=== PATIENT | male | born 1965 | race Caucasian/White ===

== ENCOUNTER 2023-11-01 12:12 | Inpatient (IN) ==
[2023-11-01] MEDS: CYCLOBENZAPRINE HCL 10 MG TAB PO STA (13:08)
[2023-11-01] MEDS: KETOROLAC TROMETHAMINE 15 MG/ML VIAL IV STA (13:08)
--- NOTE | 2023-11-01 13:08 | Emergency Department Note ---
ED Provider Note History of Present Illness Chief Complaint: Back Injury/Pain Stated Complaint: BACK AND LEG PAIN Time Seen by Provider: 11/01/23 12:27 57-year-old male presents to the emergency department with complaints of lower back pain and right leg pain. Patient reports that he has been seeing a chiropractor, Dr. Hugo, several times over the last couple weeks to be adjusted. Dr. Hugo referred him to Dr. Campos with orthospine because he is continue to have severe pain. Patient reports that he was not able to get in to see Dr. Campos until at least tomorrow but reports that he was told if the pain was severe he should come to the emergency department for MRI. Patient notes that walking and putting any weight on his right leg has been nearly impossible and he is unable to straighten or left his leg without significant pain. Home Medications Medication Instructions Recorded Confirmed Type HCTZ/LISINOPRIL (Lisinopril/Hctz 0.5 tab PO DAILY #0 tabs 11/16/11 History 02/02.5 Mg) Allergies Allergy/AdvReac Type Severity Reaction Status Date / Time No Known Allergies Allergy Unverified 11/15/11 23:58 Past Med/Surg History Problem List (Updated 11/01/23 @ 16:37 by SALENA Goodrich) Protrusion of lumbar intervertebral disc (Acute) Social History Smoking Status: Current some day smoker Tobacco Type: Cigars Feels Safe at Home: Yes Physical Exam Vital Signs Vital Signs - 24 hr 11/01/23 12:23 11/01/23 12:56 11/01/23 14:31 Temperature 36.6 C Temperature Source Temporal Artery Scan Pulse Rate 97 H Pulse Rate [Right Finger] 80 77 Pulse Rhythm [Right Finger] Regular Pulse Strength [Right Finger] Normal Respiratory Rate 18 16 18 Respiratory Effort / Characteristics Non-Labored Spontaneous Non-Labored Spontaneous Respiratory Depth Normal Normal Respiratory Pattern Regular Blood Pressure 136/85 Blood Pressure [Right Arm] 132/81 132/84 Blood Pressure Mean 102 Blood Pressure Mean [Right Arm] 98 100 Blood Pressure Position [Right Arm] Sitting Pulse Oximetry 99 98 95 Oxygen Delivery Method Room Air Room Air Room Air Sepsis Recent Fever Within 48 Hours No Sepsis New/Unexplained Change in Mental Status No Sepsis Action Taken by Nursing No Action Required 11/01/23 16:00 Temperature Temperature Source Pulse Rate Pulse Rate [Right Finger] 69 Pulse Rhythm [Right Finger] Pulse Strength [Right Finger] Respiratory Rate 20 Respiratory Effort / Characteristics Non-Labored Respiratory Depth Normal Respiratory Pattern Blood Pressure Blood Pressure [Right Arm] Blood Pressure Mean Blood Pressure Mean [Right Arm] Blood Pressure Position [Right Arm] Pulse Oximetry 96 Oxygen Delivery Method Room Air Sepsis Recent Fever Within 48 Hours Sepsis New/Unexplained Change in Mental Status Sepsis Action Taken by Nursing VITAL SIGNS - Vital signs and nursing notes were reviewed. GENERAL -57-year-old male appearing his stated age and in noticeable discomfort throughout the exam. NECK - FROM of the cervical spine. ABDOMEN - Abdominal contour flat without pulsations or visible masses. BS normoactive all four quadrants. Patient denies any bowel or bladder incontinence. MUSCULOSKELETAL - ROM of the lumbar spine region was limited due to pain. Pt made slow and short movements when asked to change position. Tenderness to Palpation experienced at the level of the lumbar spine. Patient has noticeable weakness in his right leg as compared to his left. Patient has significant pain when trying to put weight on his right leg. Patient has difficulty straightening his right leg or doing a straight leg lift due to muscle weakness and pain. Hyporeflexia noted on the right side. SENSORY: Patient has difficulty discriminating between sharp versus dull sensation in his foot. Reports that he has had numbness and tingling in his right foot since this back pain started. EXTREMITIES - Range of Motion - No tremors, ticks, or fasciculations of the lower extremities noticed during inspection. Pt unable to perform straight leg raise on right side without difficulty. Pt had decreased strength appreciated on the right side against examiner's resistance. VASCULAR - Capillary refill of the great toe was brisk. No mottling or blanching of the extremities present. Dorsalis pedis pulses palpated bilaterally. Course Course The patient is a 57-year-old male who presents today complaining of lower back pain and right leg pain. The patient was evaluated as above. IV access was obtained. Imaging studies were performed and read by radiology as above. The patient was medicated with Toradol and Flexeril. The patient was reassessed multiple times during their stay in the emergency department and remained in stable condition. 14:30- The patient was reevaluated after returning from MRI and reported that he was still having significant pain. Patient reports that the muscle relaxer helped him to straighten out his leg but the Toradol and Flexeril did not help with the pain. Patient was ordered morphine for pain and Zofran for nausea while he awaits results from imaging studies. 15:25-patient was reevaluated and stated that he was still having significant pain even after the morphine. Patient was ordered a second dose of morphine to help with the significant pain that he was still having. Discussed with patient the possibility of admission to the hospital for pain control, patient voiced that he would prefer to be able to go home, but knows that he cannot go home without being functional. 15:55-patient was reevaluated after the second dose of morphine and states that he still having some pretty significant pain. IV doses of morphine are only bringing his pain down a very small amount. Patient is still having significant weakness in his right leg. Patient is concerned about being able to go home and ambulate without a lot of help from his for needing to crawl around. Patient informed that it would probably be best for him to be admitted to the hospital for pain control patient is agreeable to that plan. 16:30-[facility] hospitalist group was consulted for admission. Patient was accepted under Dr. Mclaughlin. [facility] hospitalist team requested that I reach out to Dr. Campos regarding this patient, as that was supposed to be the outpatient plan. I reached out to Dr. Campos at this time, he has seen the patient and is agreeable to admission and pain control. Administered Medications Discontinued Medications Cyclobenzaprine HCl (Cyclobenzaprine Hcl 10 Mg Tab) 10 mg PO NOW STA Stop: 11/01/23 12:44 Last Admin: 11/01/23 13:08 Dose: 10 mg Documented By: RENA Dexamethasone (Dexamethasone Sod Inj 4 Mg/Ml Vial) 10 mg IV NOW STA Stop: 11/01/23 15:26 Last Admin: 11/01/23 15:37 Dose: 10 mg Documented By: RAJNI Ketorolac Tromethamine (Ketorolac Tromethamine 15 Mg/Ml Vial) 15 mg IV NOW STA Stop: 11/01/23 12:46 Last Admin: 11/01/23 13:08 Dose: 15 mg Documented By: RENA Morphine Sulfate (Morphine Sulfate 4 Mg/Ml 1 Ml Carp\Vial) 4 mg IV NOW STA Stop: 11/01/23 14:27 Last Admin: 11/01/23 14:31 Dose: 4 mg Documented By: RENA Morphine Sulfate (Morphine Sulfate 4 Mg/Ml 1 Ml Carp\Vial) 4 mg IV NOW STA Stop: 11/01/23 15:15 Last Admin: 11/01/23 15:25 Dose: 4 mg Documented By: RAJNI Ondansetron HCl (Ondansetron Inj 2 Mg/Ml 2 Ml Vial) 4 mg IV NOW STA Stop: 11/01/23 14:27 Last Admin: 11/01/23 14:31 Dose: 4 mg Documented By: RENA Medical Decision Making Differential Diagnosis In the evaluation and treatment of this patient the following differential diagnoses were considered: Cauda equina syndrome, discitis, HNP, sciatica, epidural abscess, psoas abscess, musculoskeletal strain, lumbar fracture, lumbar dislocation, lumbar subluxation, spondylolisthesis, spondylosis, or compression fracture. Medical Records Attestation: I reviewed the patient's medical records. Home Medications was personally reviewed by me Laboratory Data 11/01/23 16:34 11/01/23 16:34 Imaging Data Radiologist's Impression: Lumbar Spine MRI 11/01/23 12:43 LUMBAR SPINE MRI HISTORY: Right leg pain. Back Pain TECHNIQUE: Multiplanar multisequence MRI of the lumbar spine was performed without the use of contrast. COMPARISON: Lumbar spine radiographs 11/01/2023. FINDINGS: For the purpose of the report the L5-S1 disc space will be located on axial image 27 of 30. Straightening of the lumbar spine. No fracture or subluxation. Moderate disc space narrowing at T11-T12. Disc desiccation at L4-L5 and L5-S1 without significant narrowing. The remaining disc spaces are preserved. The conus terminates at the L1-L2 disc space level. Paravertebral soft tissues are unremarkable. There is a partially visualized 2 cm T2 hyperintense lesion within the left kidney. This favors a cyst. L1-L2: No significant central canal or neural foraminal narrowing. L2-L3: There is a small focal central annular tear. No significant central canal or right-sided neural foraminal narrowing. There is mild left-sided neural foraminal narrowing. L3-L4: No significant central canal or neural foraminal narrowing. L4-L5: There is a right foraminal focal disc protrusion which measures 5 mm. This abuts and displaces the exiting right L4 nerve root and results in moderate to severe right-sided neural foraminal narrowing. This is best seen on sagittal image 5 and axial image 21. No significant central canal narrowing. There is also mild left-sided neural foraminal narrowing. L5-S1: Small focal central annular tear. No significant central canal or neural foraminal narrowing. IMPRESSION: 1. A 5 mm right foraminal focal disc protrusion at L4-5 which abuts and displaces the exiting right L4 nerve root and results in moderate to severe right-sided neural foraminal narrowing. 2. No fracture or subluxation within the lumbar spine. 3. No significant central canal narrowing. ACT 112: Negative or not required by law. Electronically signed by: Matthew Castañeda M.D. 11/01/2023 3:02 PM Lumbar Spine X-Ray 11/01/23 12:43 XR lumbar spine 2-3V HISTORY: 57 years-old Male back pain acute low back pain without reported trauma COMPARISON: MRI lumbar spine of same day TECHNIQUE: 3 views of lumbar spine FINDINGS: No acute fracture, subluxation, endplate erosion or marrow replacing process. The intervertebral disc spaces are generally well maintained within the lumbar spine. There is moderate intervertebral disc space narrowing at T11-T12. IMPRESSION: No acute fracture or subluxation. ACT 112: Negative or not required by law. The above report was generated using voice recognition software. It may contain grammatical, syntax or spelling errors. Electronically signed by: Adan Ravi M.D. 11/01/2023 3:33 PM [facility] Narrative Given the patient's presentation and exam findings, I did elect to perform the above-mentioned workup. The patient was monitored constantly throughout entire stay in the emergency setting. Patient was found to have foraminal disc protrusion and neural foraminal narrowing at L4-L5 on MRI. Patient was still in significant pain after attempts at pain control in the emergency department and ultimately admission to the hospital was deemed appropriate for pain control. [facility] Protrusion of lumbar intervertebral disc Discharge Plan Visit Data Chief Complaint: Back Injury/Pain Stated Complaint: BACK AND LEG PAIN ED Provider: Bhupinder Becerra ED Midlevel Provider: Leny Villagran Discharge Problem: Protrusion of lumbar intervertebral disc Patient Disposition: Admitted As Inpatient Forms Stand Alone Forms: My [facility] Prescriptions Prescriptions: No Action HCTZ/LISINOPRIL (Lisinopril/Hctz 10/12.5 Mg) 1 EA tablet 0.5 tab PO DAILY Qty: 0 Referrals Referrals: Bhupinder Monteiro [Outside Practitioners] -
[2023-11-01] MEDS: MoRPHine SULFATE 4 MG/ML 1 ML CARP\\VIAL IV STA ×2 (14:31→15:25)
[2023-11-01] MEDS: ONDANSETRON INJ 2 MG/ML 2 ML VIAL IV STA (14:31)
--- NOTE | 2023-11-01 15:04 | Magnetic Resonance Report ---
LUMBAR SPINE MRI HISTORY: Right leg pain. Back Pain TECHNIQUE: Multiplanar multisequence MRI of the lumbar spine was performed without the use of contras t. COMPARISON: Lumbar spine radiographs 11/01/2023. FINDINGS: For the purpose of the report the L5-S1 disc space will be located on axial image 27 of 30. Straightening of the lumbar spine. No fracture or subluxation. Moderate disc space narrowing at T11-T 12. Disc desiccation at L4-L5 and L5-S1 without significant narrowing. The remaining disc spaces are preserved. The conus terminates at the L1-L2 disc space level. Paravertebral soft tissues are unremar kable. There is a partially visualized 2 cm T2 hyperintense lesion within the left kidney. This favor s a cyst. L1-L2: No significant central canal or neural foraminal narrowing. L2-L3: There is a small focal central annular tear. No significant central canal or right-sided neura l foraminal narrowing. There is mild left-sided neural foraminal narrowing. L3-L4: No significant central canal or neural foraminal narrowing. L4-L5: There is a right foraminal focal disc protrusion which measures 5 mm. This abuts and displaces the exiting right L4 nerve root and results in moderate to severe right-sided neural foraminal narro wing. This is best seen on sagittal image 5 and axial image 21. No significant central canal narrowin g. There is also mild left-sided neural foraminal narrowing. L5-S1: Small focal central annular tear. No significant central canal or neural foraminal narrowing. IMPRESSION: 1. A 5 mm right foraminal focal disc protrusion at L4-5 which abuts and displaces the exiting right L 4 nerve root and results in moderate to severe right-sided neural foraminal narrowing. 2. No fracture or subluxation within the lumbar spine. 3. No significant central canal narrowing. ACT 112: Negative or not required by law. Electronically signed by: Matthew Castañeda M.D. 11/01/2023 3:02 PM
--- NOTE | 2023-11-01 15:34 | XRay Report ---
XR lumbar spine 2-3V HISTORY: 57 years-old Male back pain acute low back pain without reported trauma COMPARISON: MRI lumbar spine of same day TECHNIQUE: 3 views of lumbar spine FINDINGS: No acute fracture, subluxation, endplate erosion or marrow replacing process. The intervertebral disc spaces are generally well maintained within the lumbar spine. There is moderate intervertebral disc space narrowing at T11-T12. IMPRESSION: No acute fracture or subluxation. ACT 112: Negative or not required by law. The above report was generated using voice recognition software. It may contain grammatical, syntax o r spelling errors. Electronically signed by: Adan Ravi M.D. 11/01/2023 3:33 PM
[2023-11-01] MEDS: DEXAMETHASONE SOD INJ 4 MG/ML VIAL IV STA (15:37)
--- NOTE | 2023-11-01 16:27 | History & Physical Report ---
Date of Service November 01, 2023 Assessment & Plan (1) Lumbosacral radiculopathy: (2) Protrusion of lumbar intervertebral disc: Plan: Patient is 57 year old male with PMH HTN, GERD, prediabetes presented to [facility] c/o low back pain, right leg pain x 3 weeks. Patient reports Low back pain and right lateral leg pain x 3 weeks. ER afebrile, vital signs stable In ER given morphine, Toradol, Decadron, now rating pain 5 out 10 on pain scale Obtain admission labs, EKG Admit med surg for pain control Scheduled Tylenol, oxycodone and dilaudid prn pain Start gabapentin Start prednisone 20mg daily Ortho spine consult CBC, BMP in am (3) HTN (hypertension): Plan: Stable in ER Continue amlodipine, losartan (4) GERD (gastroesophageal reflux disease): Plan: Continue PPI (5) Prediabetes: Plan: A1c: 5.9 in 08/31/22 A1c in AM Monitor glucose on steroids DVT Prophylaxis SCDs Full Code as per discussion with pt Follows with Dr Bernadette Diego for routine care Pt was seen and care coordinated with Dr Lord. See addendum I spent a total of 75 minutes reviewing notes, outpatient records, labs, medication, coordinating, documenting and providing care for this patient excluding time spent in the performance of separately billed services. History of Present Illness Chief Complaint: back pain Primary Care Provider: Bernadette Diego, Patient is 57 year old male with PMH HTN, GERD, prediabetes presented to ER [facility] c/o low back pain, right leg pain x 3 weeks. Patient reports Low back pain and right lateral leg pain x 3 weeks. Seeing chiropractor past several weeks without improvement. Patient states past 4 days with increased right leg pain and right foot numbness. He states sneezed 4 days ago and wonders if pain increased after that but he is unsure. Denies any other known injury or trauma. Was referred to Dr Campos, ortho spine but hasn't seen yet. 10/18/23 Dr Campos prescribed Medrol dose pack which patient finished without much relief. He has also been alternating Tylenol and Motrin without much relief. Past couple of days having so much right leg pain that he hasn't been able to ambulate. He doesn't think right leg is weak just very painful with attempted walking. Rates pain 9 out of 10 on pain scale. Denies saddle paresthesias, loss of control of bowel or bl adder. Denies fever/chills, diaphoresis, N/V/D/C, FARRELL, dizziness, syncope, vision changes, neck pain, CP, SOB, palpitations, cough, sore throat, rhinorrhea, abdominal pain, extremity edema, rashes, dysuria, hematuria, urinary retension. Allergies Allergy/AdvReac Type Severity Reaction Status Date / Time No Known Allergies Allergy Unverified 11/15/11 23:58 Home Medications Medication Instructions Recorded Confirmed Type amlodipine 10 mg tablet 10 mg PO DAILY 11/01/23 11/01/23 History losartan 100 mg tablet 100 mg PO QAM 11/01/23 11/01/23 History omeprazole 20 mg capsule,delayed 20 mg PO DAILYBB 11/01/23 11/01/23 History release Past Med/Surg History Problem List (Updated 11/01/23 @ 17:45 by Azucena Zamora PA-C) Lumbosacral radiculopathy Prediabetes GERD (gastroesophageal reflux disease) HTN (hypertension) Protrusion of lumbar intervertebral disc (Acute) Surgical History History of colonoscopy Family History Father Hypertension Stroke Mother Hypertension Stroke Social History Smoking Status: Current some day smoker Tobacco Type: Cigars Hx Alcohol Use: Yes (6 drinks on weekends) Hx Substance Use: No Feels Safe at Home: Yes Review of Systems Review of Systems: All systems reviewed & are unremarkable except as noted in HPI & below Physical Exam Physical Exam: General: no acute distress currently, WDWN Head: normocephalic, atraumatic Eyes: conjunctiva non-injected, anicteric ENT: normal inspection external ears, nose, mucous membranes moist Neck: supple, trachea midline, non-tender Lungs: clear, no respiratory distress, no wheezing/rhonchi/rales CV: RRR, no murmur, no pretibial edema Abd: normal BS, soft, non-tender Back: no spinous process tenderness to palpation, +tenderness to right lower lumbar region, +tenderness to palpation right buttock and right lateral thigh. +right leg raise to approx 20 degrees. Sensation to light touch intact bilaterally, +dorsalis pedis pulse intact Ext: no cyanosis, no calf tenderness Neuro: A&O x 3, no focal deficits noted, normal affect Skin: warm, dry Results & Data Results & Data Vital Signs (Past 12 Hours) Vital Signs Temp Pulse Pulse Resp BP BP Pulse Ox 11/01/23 14:31 77 18 132/84 95 11/01/23 12:56 80 16 132/81 98 11/01/23 12:23 36.6 C 97 H 18 136/85 99 O2 Del Method 11/01/23 14:31 Room Air 11/01/23 12:56 Room Air 11/01/23 12:23 Room Air Laboratory Results Short CBC 11/01/23 Range/Units 16:34 WBC 10.22 (4.8-10.8) K/ul Hgb 14.0 (14.0-18.0) g/dl Hct 41.2 L (42.0-52.0) % Plt Count 232 (130-400) K/uL BMP 11/01/23 16:34 Sodium 140 Potassium 4.3 Chloride 106 Carbon Dioxide 26 BUN 16 Creatinine 0.74 Glucose 120 H Calcium 9.2 Liver Function 11/01/23 Range/Units 16:34 Total Bilirubin 0.8 (0.2-1.0) mg/dl AST 16 (13-39) U/L ALT 24 (7-52) U/L Alkaline Phosphatase 56 (34-104) U/L Albumin 4.1 (3.4-5.0) gm/dl Diagnostic Findings Lumbar Spine MRI 11/01/23 12:43 LUMBAR SPINE MRI HISTORY: Right leg pain. Back Pain TECHNIQUE: Multiplanar multisequence MRI of the lumbar spine was performed without the use of contrast. COMPARISON: Lumbar spine radiographs 11/01/2023. FINDINGS: For the purpose of the report the L5-S1 disc space will be located on axial image 27 of 30. Straightening of the lumbar spine. No fracture or subluxation. Moderate disc space narrowing at T11-T12. Disc desiccation at L4-L5 and L5-S1 without significant narrowing. The remaining disc spaces are preserved. The conus terminates at the L1-L2 disc space level. Paravertebral soft tissues are unremarkable. There is a partially visualized 2 cm T2 hyperintense lesion within the left kidney. This favors a cyst. L1-L2: No significant central canal or neural foraminal narrowing. L2-L3: There is a small focal central annular tear. No significant central canal or right-sided neural foraminal narrowing. There is mild left-sided neural foraminal narrowing. L3-L4: No significant central canal or neural foraminal narrowing. L4-L5: There is a right foraminal focal disc protrusion which measures 5 mm. This abuts and displaces the exiting right L4 nerve root and results in moderate to severe right-sided neural foraminal narrowing. This is best seen on sagittal image 5 and axial image 21. No significant central canal narrowing. There is also mild left-sided neural foraminal narrowing. L5-S1: Small focal central annular tear. No significant central canal or neural foraminal narrowing. IMPRESSION: 1. A 5 mm right foraminal focal disc protrusion at L4-5 which abuts and displaces the exiting right L4 nerve root and results in moderate to severe right-sided neural foraminal narrowing. 2. No fracture or subluxation within the lumbar spine. 3. No significant central canal narrowing. ACT 112: Negative or not required by law. Electronically signed by: Matthew Castañeda M.D. 11/01/2023 3:02 PM Lumbar Spine X-Ray 11/01/23 12:43 XR lumbar spine 2-3V HISTORY: 57 years-old Male back pain acute low back pain without reported trauma COMPARISON: MRI lumbar spine of same day TECHNIQUE: 3 views of lumbar spine FINDINGS: No acute fracture, subluxation, endplate erosion or marrow replacing process. The intervertebral disc spaces are generally well maintained within the lumbar spine. There is moderate intervertebral disc space narrowing at T11-T12. IMPRESSION: No acute fracture or subluxation. ACT 112: Negative or not required by law. The above report was generated using voice recognition software. It may contain grammatical, syntax or spelling errors. Electronically signed by: Adan Ravi M.D. 11/01/2023 3:33 PM Supervising Physician Co-Signing Physician Notes Attending Addendum: Case reviewed with the advanced practitioner. I have personally performed a history and physical examination on the patient. I have reviewed the advanced practitioner's documentation on the date of service referenced in note, and I agree with, and take responsibility for the plan of care. please refer to her notes for full details patient seen and examined, records reviewed by myself as well on exam, patient Seen sitting up in bed, comfortable, not in distress States back pain and right lower extremity pain has improved compared to admission, currently around 2 out of 10 Still has some R foot tingling/ numbness no other symptoms VS noted and reviewed oriented x 3 , not in distress, speaks in sentences with no effort nor accessory muscle use normal rate, regular rhythm, no murmurs clear breath sounds bilaterally non distended, soft, nontender no bipedal edema, erythema, warmth no gross neuro deficits all labs, imaging noted and reviewed ASSESSMENT AND PLAN Intractable low back pain, radiculopathy Disc protrusion at L4-L5, with L4 nerve root compression Given IV Decadron at the ER Continue with prednisone 20 g p.o. daily, gabapentin 3 times daily As needed oxycodone, IV Dilaudid Orthospine consulted other diagnoses and plan of care as per advanced practitioner's notes Giovanny Lord MD
[2023-11-01 17:04] LABS: Basophils # (auto) 0.06 K/uL (0.00-0.20); Basophils % (auto) 0.6 %; Eosinophils # (auto) 0.07 K/uL (0.00-0.50); Eosinophils % (auto) 0.7 %; Hematocrit (blood only) 41.2 % (42.0-52.0); Immature Granulocytes # (auto) 0.08 K/uL (0.01-0.20); Immature Granulocytes % (auto) 0.8 %; Lymphocytes # (auto) 2.29 K/uL (1.20-3.40); Lymphocytes % (auto) 22.4 %; Mean Corpuscular Hemoglobin 30.2 pg (25.0-34.0); Mean Platelet Volume 9.7 fL (9.4-12.4); Monocytes # (auto) 0.72 K/uL (0.11-0.59); Neutrophils % (auto) 68.5 %; Platelet Count 232 K/uL (130-400); RDW Coefficient of Variation 11.8 % (11.5-14.5); RDW Standard Deviation 37.4 fL (36.4-46.3); Red Blood Count 4.63 M/uL (4.70-6.10); White Blood Count 10.22 K/ul (4.8-10.8)
[2023-11-01 17:19] LABS: Alanine Aminotransferase 24 U/L (7-52); Albumin Globulin Ratio 1.3 (0.9-2); Albumin Level 4.1 gm/dl (3.4-5.0); Alkaline Phosphatase 56 U/L (34-104); Anion Gap 8 (3-11); Aspartate Aminotransferase 16 U/L (13-39); BUN Creatinine Ratio 21.6 (10-20); Bilirubin,Total 0.8 mg/dl (0.2-1.0); Blood Urea Nitrogen 16 mg/dl (6-23); Calcium 9.2 mg/dl (8.6-10.3); Carbon Dioxide 26 mmol/L (21-32); Chloride 106 mmol/L (98-107); Est GFR (African American) 119.5 ml/min; Est GFR (Non-African American) 103.1 ml/min; Globulin 3.2 gm/dl (2.5-4.0); Glucose 120 mg/dl (70-99(Fasting)); Potassium 4.3 mmol/L (3.5-5.1); Sodium 140 mmol/L (136-145); Total Protein 7.3 gm/dl (6.0-8.3)
[2023-11-01 17:28] LABS: INR 0.9 (0.9-1.1); Partial Thromboplastin Time 27 Seconds (21-31); Prothrombin Time 10.2 Seconds (9.0-12.0)
[2023-11-01] MEDS: amLODIPine BESYLATE 5 MG TAB PO ONE (17:31)
[2023-11-01] MEDS ORDERED: ONDANSETRON INJ 2 MG/ML 2 ML VIAL IV PRN (19:31)
[2023-11-01] MEDS: ACETAMINOPHEN 500 MG TAB PO SCH (21:34)
[2023-11-01] MEDS: GABAPENTIN 100 MG CAP PO SCH (21:34)
[2023-11-01] MEDS: HYDROmorphone INJ 0.5 MG/0.5 ML SYR IV PRN (21:39)
[2023-11-01] MEDS: oxyCODONE HCL IR 5 MG TAB (IMMEDIATE RELEASE) PO PRN (23:07)
--- OUTSIDE RECORDS SUMMARY | 2023-11-02 06:08 | External Medical Summary | Summary of Care ---
Author Name Unknown Organization [facility] Address [address] [place] [address] Phone [phone] Care Team Providers Care Vehicle Delivery Worker Name Role Phone Bernadette Diego DO Primary Care Provider [phone] Reason for Visit * Reason Onset Date Comments Advice 04/21/2023 Encounter Details Date Type Department Care Team (Late st Contact Info) Description 04/21/2023 Telephone Family Practice [facility] [address] [facility] [place] [address] Bernadette Diego DO [address] [facility] [address] Advice Allergies Active Allergy Reactions Criticality Noted Date Comments Hydrochlorothiazide 09/07/2020 Possibly caused itching documented as of this encounter (statuses as of 07/21/2023) Medications Medication Sig Dispensed Refills Start Date End Date Status hydrOXYzine HCl 25 MG Oral TabletIndications:It isamar TAKE 1 TABLET BY MOUTH EVERY 6 HOURS NEEDED FOR ITCHING. 90 Tablet 3 03/31/2022 Active Fish Oil 1000 MG Oral Capsule Take 1 Capsule by mouth in the morning. 0 Active Turmeric 500 MG Oral Capsule Take 1 Capsule by mouth in the morning. 0 Active Melatonin 10 MG Oral Tablet Take 1 Tablet by mouth at bedtime. 0 Active Omeprazole 20 MG Oral Capsule Delayed Release (PriLOSEC)Indication s:Gastroesophageal reflux disease with esophagitis, unspecified whether hemorrhage TAKE ONE CAPSULE BY MOUTH ONCE DAILY ONE HOUR BEFORE THE 1ST MEAL OF THE DAY 90 Capsule 3 10/27/2022 Active Clobetasol Propionate 0.05 % External Cream (Temovate)Indication s:Poison shaquille dermatitis Apply topically to affected area 2 times a day for up to one week. 30 g 1 11/09/2022 Active Losartan Potassium 100 MG Oral Tablet (Cozaar)Indications: HTN, goal below 130/80 TAKE ONE TABLET BY MOUTH IN THE MORNING 90 Tablet 3 02/20/2023 Active Benzonatate 100 MG Oral Capsule Take 1 Capsule by mouth 3 times a day as needed for Cough. 30 Capsule 1 04/19/2023 Active Ventolin HFA 108 (90 Base) MCG/ACT Inhalation Aerosol Solution Inhale 2 Puffs by mouth every 4 hours as needed for Wheezing. 18 g 1 04/19/2023 Active documented as of this encounter (statuses as of 07/21/2023) Active Problems Problem Noted Date Diagnosed Date Aortic root enlargement 10/02/2020 Overview: Mild 4.3 cm 09/2020, stable from previous echo 2017 Mild aortic regurgitation 10/02/2020 Prediabetes 09/01/2020 Overview: Per Prediabetes protocol HTN, goal below 130/80 GERD (gastroesophageal reflux disease) documented as of this encounter (statuses as of 07/21/2023) Resolved Problems Problem Noted Date Diagnosed Date Resolved Date Chest pain 07/23/2014 07/25/2017 Acute sinusitis 06/24/2014 07/23/2014 GERD (gastroesophageal reflux disease) 06/24/2014 07/23/2014 Malaise and fatigue 07/09/2013 07/24/19 15 Headache 07/09/2013 07/23/2014 Overview: ICD-10 update of inactive term General medical exam 07/09/2013 018 Pain of left lower leg 12/28/201107/09 Left leg injury 12/19/2011 07/09/2013 Itching 11/17/2011 07/23/2014 Sprain and strain of other s pecified sites of shoulder and upper arm 10/18/2010 07/23/2014 Elevated blood pressure, situational 10/15/2010 11/17/2011 documented as of this encounter (statuses as of 07/21/2023) Immunizations Name Administration Dates Next Due COVID-19 mRNA, LNP-s, No Pre serve, 2-Dose Series (Moderna) 09/03/2020,08/13/2020 TDAP (age 10 and older)(Boostrix) 09/11/2018 TDAP (age 11 and older)(Adacel) 06/22/2008 documented as of this encounter Social History Tobacco Use Types Packs/Day Years Used Date Smoking Tobacco: Some Days Cigarettes Cigars Smokeless Tobacco: Never Comments:only when drinking, 3-4 a week - cigars Alcohol Use Standard Drinks/Week Comments Yes 0 (1 standard drink = 0.6 oz pur e alcohol) social PHQ-2 Answer Date Recorded PHQ Adult Total Score 0 08/31/2022 Hunger Vital Sign Answer Date Recorded Within the past 12 months, y ou worried that your food would run out before you got the money to buy more. Never true 09/01/19 23 Within the past 12 months, t he food you bought just didn't last and you didn't have money to get more. Never true 08/31/2022 Sex and Gender Information Value Date Recorded Sex Assigned at Male 08/31/2022 2:04 PM EDT Gender Identity Male 08/31/2022 2:04 PM EDT Sexual Orientation Straight 08/31/2022 2: 04 PM EDT Job Start Date Occupation Industry Not on file Not on file Not on file documented as of this encounter Miscellaneous Notes * Telephone Encounter - iHlda Chaudhry MED ASSIST - 04/21/2023 2:40 PM EST MyG message sent. * Telephone Encounter - Brunilda Deleon CRNP - 04/21/2023 2:31 PM EST Cough is expected with flu and should gradually reduce. Can try over the counter Delsym. I sent in tessalon perldemlis as well. Mayela, MSN, [place] [facility] * Telephone Encounter - Chandni Peña OSA - 04/21/2023 9:15 AM EST Spouse seeking guidance, patient seen on 04/19 for cold symptoms - currently taking tamiflu. Still has issues sleeping through the night due to cough. Patient also taking albuterol and mucinex. Coughmore manageable during day, patient wants to know what further steps to take to help with sleep. Call back #[phone] documented in this encounter Plan of Treatment Scheduled Procedures Name Priority Associated Diagnoses Date/Ti me COLONOSCOPY FLEXIBLE PROXIMA L DIAGNOSTIC Recall Special screening for malignant neoplasms, colon Health Maintenance Due Date Last Done Comments Pneumococcal Vaccine: Pediatrics (0 to 5 Years) and At-Risk Patients (6 to 64 Years) (1 of 2 - PCV) 1972 Hepatitis C Screening 1984 Hepatitis B (1 of 3 - 19+ 3-dose series) 1985 Cologuard 11/28/2011 Fecal Occult Blood Test 11/28/2011 Sigmoidoscopy 11/28/2011 Zoster Vaccines (1 of 2) 2016 COVID-19 Vaccine (3 - season) 2022 09/03/2020, 08/13/2020 Influenza Vaccine (FLU shot) (#1) 2022 Depression Screening 09/01/2023 08/31/2022 GFR 09/01/2023 08/31/2022, 05/0 06/2020, 12/11/2019, Additional history exists HbA1c 09/01/2023 08/31/2022, 05/0 06/2020, 12/11/2019 Albumin/Creatinine Ratio 08/31/2025 08/31/2022 Lipid Panel 09/01/2027 08/31/2022, 05/0 06/2020, 12/11/2019, Additional history exists DTaP,Tdap,and Td Vaccines (3 - Td or Tdap) 09/11/2028 09/11/2018, 06/22/2008 Colonoscopy 05/24/2029 05/24/2019, 05/24/2019 Colorectal Cancer Screening 05/24/2029 GARDASIL-HPV IMMUNIZATION SERIES Aged Out No longer eligible based on patient's age to complete this topic MENINGOCOCCAL (MENACTRA/MENVEO) Aged Out No longer eligible based on patient's age to complete this topic documented as of this encounter Medical Devices Not on filedocumented as of this encounter Additional Health Concerns Infection Onset Date Last Indicated Resolved Time Influenza (seasonal) 04/19/2023 04/19/2023 024 12:18 AM EST documented as of this encounter Care Teams Vehicle Delivery Worker Relationship Specialty Start Date End Date Bernadette Diego DO [address] [place] [address] PCP - General Family Medicine 05/02/16 documented as of this encounter
--- OUTSIDE RECORDS SUMMARY | 2023-11-02 06:08 | External Medical Summary | Summary of Care ---
Author Name Unknown Organization [facility] Address [address] [place] [address] Phone [phone] Care Team Providers Care Recycling Manager Name Role Phone Bernadette Diego DO Primary Care Provider [phone] Reason for Visit * Reason Onset Date Comments Health Maintenance 09/13/2023 Encounter Details Date Type Department Care Team (Late st Contact Info) Description 09/13/2023 Telephone Family Practice [facility] [address] [facility] [place] [address] Bernadette Diego DO [address] [facility] [place] [address] Health Maintenance Allergies Active Allergy Reactions Criticality Noted Date Comments Hydrochlorothiazide 09/07/2020 Possibly caused itching documented as of this encounter (statuses as of 09/13/2023) Medications Medication Sig Dispensed Refills Start Date End Date Status hydrOXYzine HCl 25 MG Oral TabletIndications:It isamar TAKE 1 TABLET BY MOUTH EVERY 6 HOURS NEEDED FOR ITCHING. 90 Tablet 3 03/31/2022 Active Fish Oil 1000 MG Oral Capsule Take 1 Capsule by mouth in the morning. Active Turmeric 500 MG Oral Capsule Take 1 Capsule by mouth in the morning. Active Melatonin 10 MG Oral Tablet Take 1 Tablet by mouth at bedtime. Active Omeprazole 20 MG Oral Capsule Delayed [...] for Wheezing. 18 g 1 04/19/2023 Active amLODIPine Besylate 10 MG Oral Tablet (Norvasc)Indications :HTN, goal below 130/80 Take 1 Tablet by mouth in the morning. 90 Tablet 3 06/07/2023 Active documented as of this encounter (statuses as of 09/13/2023) Active Problems Problem Noted Date Diagnosed Date Aortic root enlargement 10/02/2020 Overview: Mild 4.3 cm 09/2020, stable from previous echo 2017 Mild aortic regurgitation 10/02/2020 Prediabetes 09/01/2020 Overview: Per Prediabetes protocol HTN, goal below 130/80 GERD (gastroesophageal reflux disease) documented as of this encounter (statuses as of 09/13/2023) Resolved Problems Problem Noted Date Diagnosed Date [...] as of this encounter (statuses as of 09/13/2023) Immunizations Name Administration Dates Next Due COVID-19 [...] encounter Miscellaneous Notes * Telephone Encounter - Kimberly ChristinaVAN - 09/13/2023 2:11 PM EDT Care Gaps Comprehensive Care Outreach Last Office/Telemedicine Visit: 04/19/2023 (in office), Visit date not found (telemedicine) Next Office Visit: Visit date not found Hemoglobin AIC Results: Lab Results Component Value Date/Time HEMOGLOBIN A1C - [facility] 5.9 (H) 08/31/2022 02:58 PM HEMOGLOBIN A1C - [facility] 5.9 (H) 08/24/2020 09:51 AM HEMOGLOBIN A1C - [facility] 5.8 (H) 12/11/2019 10:17 AM BP Readings from Last 1 Encounters: 04/19/23 124/68 Reviewed Health Maintenance below: Health Maintenance Topic Date Due Pneumococcal Vaccine: Pediatrics (0 to 5 Years) and At-Risk Patients (6 to 64 Years) (1 of 2 - PCV)Never done Hepatitis C Screening Never done Hepatitis B (1 of 3 - 19+ 3-dose series) Never done Zoster Vaccines (1 of 2) Never done COVID-19 Vaccine ( - season) 2022 HbA1c 09/01/2023 GFR 09/01/2023 Depression Screening 09/01/2023 Ov labs Care Gap Outreach Action Taken: Left message documented in this encounter Plan of Treatment [...] Vaccines (1 of 2) 2016 COVID-19 Vaccine ( - season) 2022 09/03/2020, 08/13/2020 Depression Screening 09/01/2023 08/31/2022 GFR 09/01/2023 08/31/2022, 05/0 06/2020, 12/11/2019, Additional history exists HbA1c 09/01/2023 08/31/2022, 05/0 06/2020, 12/11/2019 Influenza Vaccine (FLU shot) (Season Ended) 2023 Albumin/Creatinine Ratio 08/31/2025 08/31/2022 Lipid Panel 09/01/2027 [...] Not on filedocumented as of this encounter Care Teams Recycling Manager Relationship Specialty Start Date End Date Bernadette Diego DO [address] [place] [address] PCP - General Family Medicine 05/02/16 documented as of this encounter
--- NOTE | 2023-11-02 07:54 | Orthopedic Consultation ---
Date of Consultation November 02, 2023 Assessment & Plan (1) Lumbar disc herniation with radiculopathy: MRI lumbar spine available for review demonstrates a foraminal extraforaminal disc herniation L4-5 on the right concordant with this patient's symptom complex. I have discussed with the patient his MRI findings and treatment plan. This time there is a very good chance she can heal this discrimination on his own without surgical invention. I am requesting interventional pain management for possible transforaminal injection. Patient understands agrees with this plan and would like to avoid surgical treatment. History of Present Illness Reason for Consultation: Right leg pain Attending Physician: Slade Mora MD History of Present Illness This is a 57-year-old male who presents yesterday with worsening severe right leg pain. He states his symptoms began approximately 3 weeks ago. Is been managed with personal carer. This progressively worsened to the point that he required admission and pain control. He denies any specific trauma fall or event. Patient radiates from the lumbar spine and the right buttock lateral thigh to the knee and anterior tibia and dorsum of his foot. Left lower extremity is asymptomatic. Markedly limits his ability to stand and ambulate. He is in extreme distress. 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 Allergies Allergy/AdvReac Type Severity Reaction Status Date / Time No Known Allergies Allergy Unverified 11/15/11 23:58 Home Medications Medication Instructions Recorded Confirmed Type amlodipine 10 mg tablet 10 mg PO DAILY 11/01/23 11/01/23 History losartan 100 mg tablet 100 mg PO QAM 11/01/23 11/01/23 History omeprazole 20 mg capsule,delayed 20 mg PO DAILYBB 11/01/23 11/01/23 History release Patient History Surgical History History of colonoscopy Family History Father Hypertension Stroke Mother Hypertension Stroke Social History Smoking Status: Current some day smoker Tobacco Type: Cigars Cigarettes Per Day: occasionally/; Second Hand Exposure: No; Do You Dip or Chew Tobacco: No; Hx Alcohol Use: Yes Alcohol type: beer Hx Substance Use: No Preferred Language: Maori Communication Ability: Effective Ore Grader Required: No Beliefs That Will Affect Care: None Current Living Situation: Spouse Feels Safe at Home: Yes Safety Concerns: Feels Safe At This Time Assistive Devices: Glasses Physical Exam Physical Exam: Patient is lying supine. He has significant tension signs with straight leg raising on the right negative on the left. He has breakaway weakness to right dorsiflexion quadriceps compared to 5 and 5 strength on the left. Sensory is diminished on the right compared to left. Deep tendon flexes diminished. Results & Data Vital Signs (Past 12 Hours) Vital Signs Temp Pulse Resp BP Pulse Ox O2 Del Method 11/01/23 22:05 36.6 C 79 19 151/84 H 99 Room Air 11/01/23 22:00 Room Air 11/01/23 22:00 36.6 C 79 19 151/84 H 99 Room Air
[2023-11-02 08:22] LABS: Hematocrit (blood only) 39.6 % (42.0-52.0); Hemoglobin 13.5 g/dl (14.0-18.0); Mean Corpuscular Hemoglobin 30.5 pg (25.0-34.0); Mean Corpuscular Hgb Conc 34.1 g/dL (32.0-36.0); Mean Corpuscular Volume 89.6 fL (80.0-100.0); Mean Platelet Volume 9.5 fL (9.4-12.4); Platelet Count 270 K/uL (130-400); RDW Coefficient of Variation 11.4 % (11.5-14.5); RDW Standard Deviation 37.2 fL (36.4-46.3); Red Blood Count 4.42 M/uL (4.70-6.10); White Blood Count 14.22 K/ul (4.8-10.8)
[2023-11-02 08:40] LABS: Calcium 9.1 mg/dl (8.6-10.3); Creatinine Clr Calc Pharmacy 96.4 ml/min; Est GFR (African American) 115.7 ml/min; Est GFR (Non-African American) 99.9 ml/min; Potassium 4.2 mmol/L (3.5-5.1)
[2023-11-02 09:01] LABS: Estimated Average Glucose 126 mg/dl
[2023-11-02] MEDS: LOSARTAN POTASSIUM 50 MG TAB PO SCH (09:11)
[2023-11-02] MEDS: amLODIPine BESYLATE 5 MG TAB PO SCH (09:12)
[2023-11-02] MEDS: PANTOprazole 40 MG TAB PO SCH (09:12)
[2023-11-02] MEDS: predniSONE 20 MG TAB PO SCH (09:12)
--- NOTE | 2023-11-02 10:08 | Pain Management Consultation ---
Date of Consultation November 02, 2023 Assessment & Plan (1) Lumbar disc herniation with radiculopathy: (2) Weakness of right lower extremity: (3) Paresthesia of right lower extremity: Plan 1. The patient has been experiencing right-sided lateral lumbosacral low back pain symptoms, associated w/ radiation into the right buttocks and posterior lateral hip, then into the right lower extremity, seemingly in a more S1/L5 distribution pattern, but with a known foraminal disc extrusion at the L4-5 level on the right, which was seen on MRI. * Patient is recommended to undergo RIGHT L4-5 transforaminal epidural steroid injection. * This will be facilitated as an outpatient at the pain management clinic, and so the patient is recommended to be transitioned from IV to oral pain medications as able in preparation for discharge. * The risks, benefits, and alternatives of the procedure were discussed in detail with the patient, and in full understanding of the procedure to be performed, the patient elects to proceed as discussed. * He does understand that we will plan to bring him in just prior to the planned injection, for which we will need to obtain insurance authorization, which may take up to 10 business days, for an initial history and physical visit 2. The patient does not take any prescription anticoagulants regularly. 3. To better address neuropathic symptoms, gabapentin is recommended to be titrated up to 300 mg TID. 4. Continue acetaminophen and prednisone as ordered. Recommend continuing oral steroids at discharge. 5. Patient was educated in detail on the potential development of cauda equina syndrome red flag symptoms (i.e. severe back pain, bilateral sciatica pain and altered sensation in the legs, bowel/bladder dysfunction, saddle anesthesia, sexual problems), and to contact our office immediately, or report to the ER, if they notice any of these. 6. We will be in touch with the patient once more details have been found out about scheduling and authorization. History of Present Illness Reason for Consultation: L4 L5 transforaminal injection R Requesting Physician: Jethro Campos DO Attending Physician: Slade Mora MD History of Present Illness Patient is a 57-year-old male that presented to the [facility] ED on 11/01/2023 with complaints of lower back pain and right leg pain. Patient reported that he had been seeing a chiropractor, Dr. Hugo, several times over the last couple of weeks to be adjusted. Dr. Hugo referred him to Dr. Campos with [facility] because he was continuing to have severe pain. Patient had reported that he had similar instances of pain in the past, but not as severe, and they went away with chiropractic treatments in the past. But since this occasion did not seem to subside, he was instructed to see Dr. Campos. However, the patient states that he was not able to get in to see Dr. Campos until at least 11/01, and so he was told by his chiropractor that if the pain was severe he should come to the emergency department for expediting and MRI. In the ED, the patient noted that walking and putting any weight on his right leg had been nearly impossible and he was unable to straighten or lift his leg without significant pain. Today, he says that yesterday you could not even touch the lateral aspect of his knee due to the pain, but that has improved some. He says that these more severe symptoms have been present for about 3 weeks. He is denying any specific incident or injury as a cause to his current symptoms. However, he does say that more recent chiropractic treatments seemed to make his condition worse. Compared to yesterday, he says that he is actually feeling quite a bit better today. He says that whereas his pain was a 9 or 10 yesterday, it is now 6 or 7. Patient localizes his pain to the right lumbosacral region, which travels into the right buttocks and posterior lateral hip, then down the posterior lateral right thigh and lower leg. He denies any central or left-sided low back pain. He denies any left lower extremity involvement. Dr. Campos has seen and evaluated the patient and determined that he is not currently a surgical candidate and that more conservative treatment should be pursued at this time; he has consulted our pain management service for consideration of procedural intervention, particularly for a right L4-5 transforaminal KEISHA. Case discussed with Dr. Jessica Sims. Allergies Allergy/AdvReac Type Severity Reaction Status Date / Time No Known Allergies Allergy Unverified 11/15/11 23:58 Home Medications Medication Instructions Recorded Confirmed Type amlodipine 10 mg tablet 10 mg PO DAILY 11/01/23 11/01/23 History losartan 100 mg tablet 100 mg PO QAM 11/01/23 11/01/23 History omeprazole 20 mg capsule,delayed 20 mg PO DAILYBB 11/01/23 11/01/23 History release Patient History Surgical History History of colonoscopy Family History Father Hypertension Stroke Mother Hypertension Stroke Social History Smoking Status: Current some day smoker Tobacco Type: Cigars Cigarettes Per Day: occasionally/; Second Hand Exposure: No; Do You Dip or Chew Tobacco: No; Hx Alcohol Use: Yes Alcohol type: beer Hx Substance Use: No Preferred Language: Venezuelan Communication Ability: Effective Wire Walker Required: No Beliefs That Will Affect Care: None Current Living Situation: Spouse Feels Safe at Home: Yes Safety Concerns: Feels Safe At This Time Assistive Devices: Glasses Physical Exam Physical Exam: GENERAL: Speech and cognition is intact. Mood and affect is appropriate. Does not appear in acute distress. HEAD: Normocephalic; atraumatic. NECK: Trachea is midline. CHEST: Regular chest respiration and excursion. EXTREMITIES: No TTP. Distal sensation and pulses intact bilaterally. BACK: Diminished ROM.+ Right lumbosacral region tenderness. + Right lumbosacral paraspinal and superior lateral gluteal tenderness.Inspection/palpation demonstrates some loss of normal lumbar lordotic curvature. NEURO: CN II-XII grossly intact with no focal deficits noted. Gait not witnessed. Awake, alert, and oriented x 3. Patellar Reflex R traceL 1+ Achilles Reflex R traceL trace Negative clonus bilaterally SKIN: No lesions, erythema, or rashes noted. LOWER EXTREMITIES: Positive straight leg raise on the right. R Hip flexion 4+/5; hip extension 4+/5; knee extension 4+/5; knee flexion 4-/5 (w/ pain); ankle dorsiflexion 5/5; ankle plantar flexion 4-/5; EHL 5/5 L Hip flexion 5/5; hip extension 5/5; knee extension 5/5; knee flexion 5/5; ankle dorsiflexion 5/5; ankle plantar flexion 5/5; EHL 5/5 Special tests: Positive slump test right Results (Pain Clinic) Diagnostic Review MRI Findings: LUMBAR SPINE MRI HISTORY: Right leg pain. Back Pain TECHNIQUE: Multiplanar multisequence MRI of the lumbar spine was performed without the use of contrast. COMPARISON: Lumbar spine radiographs 11/01/2023. FINDINGS: For the purpose of the report the L5-S1 disc space will be located on axial image 27 of 30. Straightening of the lumbar spine. No fracture or subluxation. Moderate disc space narrowing at T11-T12. Disc desiccation at L4-L5 and L5-S1 without significant narrowing. The remaining disc spaces are preserved. The conus terminates at the L1-L2 disc space level. Paravertebral soft tissues are unremarkable. There is a partially visualized 2 cm T2 hyperintense lesion within the left kidney. This favors a cyst. L1-L2: No significant central canal or neural foraminal narrowing. L2-L3: There is a small focal central annular tear. No significant central canal or right-sided neural foraminal narrowing. There is mild left-sided neural foraminal narrowing. L3-L4: No significant central canal or neural foraminal narrowing. L4-L5: There is a right foraminal focal disc protrusion which measures 5 mm. This abuts and displaces the exiting right L4 nerve root and results in moderate to severe right-sided neural foraminal narrowing. This is best seen on sagittal image 5 and axial image 21. No significant central canal narrowing. There is also mild left-sided neural foraminal narrowing. L5-S1: Small focal central annular tear. No significant central canal or neural foraminal narrowing. IMPRESSION: 1. A 5 mm right foraminal focal disc protrusion at L4-5 which abuts and displaces the exiting right L4 nerve root and results in moderate to severe right-sided neural foraminal narrowing. 2. No fracture or subluxation within the lumbar spine. 3. No significant central canal narrowing. ACT 112: Negative or not required by law. Electronically signed by: Matthew Castañeda M.D. 11/01/2023 3:02 PM Dictated: 11/01/23 1456 Transcribed: 11/01/23 1456 Radiology Findings: XR lumbar spine 2-3V HISTORY: 57 years-old Male back pain acute low back pain without reported trauma COMPARISON: MRI lumbar spine of same day TECHNIQUE: 3 views of lumbar spine FINDINGS: No acute fracture, subluxation, endplate erosion or marrow replacing process. The intervertebral disc spaces are generally well maintained within the lumbar spine. There is moderate intervertebral disc space narrowing at T11-T12. IMPRESSION: No acute fracture or subluxation. ACT 112: Negative or not required by law. The above report was generated using voice recognition software. It may contain grammatical, syntax or spelling errors. Electronically signed by: Adan Ravi M.D. 11/01/2023 3:33 PM Dictated: 11/01/23 1532 Transcribed: 11/01/23 1532
--- NOTE | 2023-11-02 12:05 | Hospitalist Progress Note ---
Date of Service November 02, 2023 Assessment & Plan (1) Lumbosacral radiculopathy: (2) Protrusion of lumbar intervertebral disc: Plan: Patient is 57 year old male with PMH HTN, GERD, prediabetes presented [facility] c/o low back pain, right leg pain x 3 weeks. Patient reports Low back pain and right lateral leg pain x 3 weeks. -Admit med surg for pain control -Scheduled Tylenol, tramadol per pain management so stopped oxycodone, and uptitrated gabapentin to 300 mg TID to start at 1400 today -Start prednisone 20mg daily - pain management recs 18day medrol taper on discharge -Pain is not yet controlled, will monitor, if improvement maybe can go home this afternoon, if not can stay overnight x1 more day -Ortho spine consult- appreciate recs - no surgical intervention -Pain management consulted - wbc 14, hgb 13.5 (3) HTN (hypertension): Plan: -Stable in ER -Continue amlodipine, losartan (4) GERD (gastroesophageal reflux disease): Plan: -Continue PPI (5) Prediabetes: Plan: - A1c: 6.0 today - Monitor glucose on steroids DVT Prophylaxis: SCDs Full Code as per discussion with pt Follows with Dr Bernadette Diego for routine care Pt was seen and care coordinated with Dr Lord. See addendum I spent a total of 45 minutes reviewing notes, outpatient records, labs, medication, coordinating, documenting and providing care for this patient excluding time spent in the performance of separately billed services. Admission and Anticipated Discharge Date Admission Date: November 01, 2023 Supervising Physician Co-Signing Physician Notes Patient was seen and examined at bedside as a follow-up of lumbosacral radiculopathy. Patient reports some improvement in his low back pain but is still not comfortable going home. Continue with pain management and a steroid. Orthospine and pain management evaluated, appreciate recommendation. On examination: Room air, NAD, heart/lung/abdomen examination WNL, RLE SLRT positive. Rest of the examination as above. I have seen and examined the patient and have discussed the case with the provider above. I agree with the assessment and plan as stated. Subjective P states that his pain is better overall, but still feels it in the right knee and right posterior leg. Nerve pain is much improved. He did not sleep well overnight, was up several times because of pain. Also says that he uses melatonin 10 mg at home which she did not receive last night and thinks this is partially due to that. Notes that he has not previously experienced urinary retention, incontinence to bowel or bladder, monitoring. He feels that he still has some improvement to be made with his pain in his understanding that this will not be completely resolved. No current plans for surgical intervention per orthospine and pain management. Pain management is planning on doing outpatient epidural steroid injection, titrating meds. 10 point ROS reviewed and otherwise negative. Physical Exam Physical Exam: General: awake, alert, no apparent distress, white male Head: Normocephalic, atraumatic ENT: PERRL, EOMI, no pharyngeal exudate, mucous membranes moist Chest: Clear to auscultation, on room air, no adventitious breath sounds Cardiac: Regular rate and rhythm, no murmur, no JVD, normal peripheral pulses, good capillary refill Abdominal: NABS x 4 quadrants, soft, nondistended, nontender to palpation, no rebound or guarding Extremities: Normal inspection, no peripheral edema or erythema, calfs nontender to palpation Psych: Normal mood and affect Neuro: AAO x 3, strength intact bilaterally and rated 5/5, able to move all extremities, no motor deficits but reports pain with movement of the right leg and sitting up in bed in the r lower back/hip region. speech is clear, no peripheral sensory deficits Results & Data Results & Data Vital Signs (Past 12 Hours) Vital Signs Temp Pulse Resp BP Pulse Ox O2 Del Method 11/02/23 07:55 36.6 C 79 23 143/82 H 95 Room Air
--- NOTE | 2023-11-02 13:32 | Electrocardiogram Report ---
Test Reason : Blood Pressure : / mmHG Vent. Rate : 067 BPM Atrial Rate : 067 BPM P-R Int : 160 ms QRS Dur : 092 ms QT Int : 366 ms P-R-T Axes : 021 -01 022 degrees QTc Int : 386 ms Normal sinus rhythm Normal ECG When compared with ECG of 16-NOV-2011 00:01, No significant change was found Confirmed by Sunil Klein ([id number]) on 11/02/2023 1:32:07 PM Referred By: REFERRED SELF Confirmed By:Chivo Klein
[2023-11-02] MEDS: GABAPENTIN 300 MG CAP PO SCH (13:57)
[2023-11-02] MEDS: POLYETHYLENE (MIRALAX) 17 GM PACK PO SCH (15:01)
[2023-11-02] MEDS: traMADol HCL 50 MG TABLET PO PRN (17:39)
[2023-11-02] MEDS: bisacodyL 5 MG TABEC PO SCH (20:38)
[2023-11-03 09:03] LABS: Hematocrit (blood only) 38.8 % (42.0-52.0); Hemoglobin 13.1 g/dl (14.0-18.0); Mean Corpuscular Hemoglobin 30.9 pg (25.0-34.0); Mean Corpuscular Hgb Conc 33.8 g/dL (32.0-36.0); Mean Corpuscular Volume 91.5 fL (80.0-100.0); Mean Platelet Volume 9.8 fL (9.4-12.4); Platelet Count 260 K/uL (130-400); RDW Coefficient of Variation 11.8 % (11.5-14.5); RDW Standard Deviation 39.1 fL (36.4-46.3); Red Blood Count 4.24 M/uL (4.70-6.10); White Blood Count 16.12 K/ul (4.8-10.8)
[2023-11-03 09:18] LABS: BUN Creatinine Ratio 22.6 (10-20); Calcium 8.5 mg/dl (8.6-10.3); Creatinine Clr Calc Pharmacy 91.8 ml/min; Est GFR (African American) 113.4 ml/min; Est GFR (Non-African American) 97.9 ml/min; Potassium 3.9 mmol/L (3.5-5.1)
[2023-11-03] MEDS: GABAPENTIN 100 MG CAP PO SCH (13:39)
--- NOTE | 2023-11-03 15:39 | Hospitalist Progress Note ---
Date of Service November 03, 2023 Assessment & Plan (1) Lumbosacral radiculopathy: (2) Protrusion of lumbar intervertebral disc: Plan: Patient is 57 year old male with PMH HTN, GERD, prediabetes presented to ER wt c/o low back pain, right leg pain x 3 weeks. Patient reports Low back pain and right lateral leg pain x 3 weeks. -Admit med surg for pain control -Scheduled Tylenol, tramadol per pain management. Gabapentin scaled back to 100 mg tid for now given dizziness symptoms. -c/w prednisone 20mg daily - taper the dose on dc. -Pain control somewhat better but still patient doesn't feel confident enough to manage at home. -Ortho spine consult- appreciate recs - no surgical intervention -Pain management evaled. (3) HTN (hypertension): Plan: -Stable in ER -Continue amlodipine, losartan (4) GERD (gastroesophageal reflux disease): Plan: -Continue PPI (5) Prediabetes: Plan: - A1c: 6.0 - Monitor glucose on steroids. Monitoring at pcp office and a1c in 3 months. DVT Prophylaxis: SCDs Full Code Follows with Dr Bernadette Diego for routine care Admission and Anticipated Discharge Date Admission Date: November 01, 2023 Subjective Patient was seen and examined at bedside. Patient was lying in bed, on room air, NAD, resting comfortably. Patient reports having occasional dizziness, orthostatic vitals are negative. Dizziness could be secondary to uptitration in gabapentin and concurrent use of pain medication. Will scale back gabapentin to 100 mg 3 times daily for now and monitor. Patient advised to make slow changes during transition in position to avoid fall. Patient denies headache or fever or cough or sore throat or chest pain or other review of symptoms. Physical Exam Physical Exam: General: awake, alert, no apparent distress, white male Head: Normocephalic, atraumatic ENT: PERRL, EOMI, no pharyngeal exudate, mucous membranes moist Chest: Clear to auscultation, on room air, no adventitious breath sounds Cardiac: Regular rate and rhythm, no murmur, no JVD, normal peripheral pulses, good capillary refill Abdominal: NABS x 4 quadrants, soft, nondistended, nontender to palpation, no rebound or guarding Extremities: Normal inspection, no peripheral edema or erythema, calfs nontender to palpation Psych: Normal mood and affect Neuro: AAO x 3, strength intact bilaterally and rated 5/5, able to move all extremities, no motor deficits but reports pain with movement of the right leg and sitting up in bed in the r lower back/hip region. speech is clear, no peripheral sensory deficits Results & Data Results & Data Vital Signs (Past 12 Hours) Vital Signs Temp Pulse Pulse Resp BP Pulse Ox O2 Del Method 11/03/23 11:30 36.5 C 70 16 114/68 95 Room Air 11/03/23 10:00 80 22 139/80 97 Room Air 11/03/23 07:25 36.6 C 78 18 121/77 96 Room Air
[2023-11-04 07:08] LABS: Hematocrit (blood only) 41.6 % (42.0-52.0); Hemoglobin 13.8 g/dl (14.0-18.0); Mean Corpuscular Hemoglobin 30.1 pg (25.0-34.0); Mean Corpuscular Hgb Conc 33.2 g/dL (32.0-36.0); Mean Corpuscular Volume 90.6 fL (80.0-100.0); Mean Platelet Volume 9.4 fL (9.4-12.4); Platelet Count 278 K/uL (130-400); RDW Coefficient of Variation 11.7 % (11.5-14.5); RDW Standard Deviation 38.2 fL (36.4-46.3); Red Blood Count 4.59 M/uL (4.70-6.10); White Blood Count 14.21 K/ul (4.8-10.8)
[2023-11-04 07:35] LABS: BUN Creatinine Ratio 21.5 (10-20); Creatinine Clr Calc Pharmacy 82.9 ml/min; Est GFR (Non-African American) 91.4 ml/min; Magnesium 2.1 mg/dl (1.7-2.4); Phosphorus 4.1 mg/dl (2.5-4.9)
--- NOTE | 2023-11-04 11:49 | Discharge Summary ---
Date of Service November 04, 2023 Admission HPI Per Admitting Provider Patient is 57 year old male with PMH HTN, GERD, prediabetes presented to ER [facility] c/o low back pain, right leg pain x 3 weeks. Patient reports Low back pain and right lateral leg pain x 3 weeks. Seeing chiropractor past several weeks without improvement. Patient states past 4 days with increased right leg pain and right foot numbness. He states sneezed 4 days ago and wonders if pain increased after that but he is unsure. Denies any other known injury or trauma. Was referred to Dr Campos, ortho spine but hasn't seen yet. 10/18/23 Dr Campos prescribed Medrol dose pack which patient finished without much relief. He has also been alternating Tylenol and Motrin without much relief. Past couple of days having so much right leg pain that he hasn't been able to ambulate. He doesn't think right leg is weak just very painful with attempted walking. Rates pain 9 out of 10 on pain scale. Denies saddle paresthesias, loss of control of bowel or bladder. Denies fever/chills, diaphoresis, N/V/D/C, FARRELL, dizziness, syncope, v ision changes, neck pain, CP, SOB, palpitations, cough, sore throat, rhinorrhea, abdominal pain, extremity edema, rashes, dysuria, hematuria, urinary retension. Admission Exam Per Admitting Provider General: no acute distress currently, WDWN Head: normocephalic, atraumatic Eyes: conjunctiva non-injected, anicteric ENT: normal inspection external ears, nose, mucous membranes moist Neck: supple, trachea midline, non-tender Lungs: clear, no respiratory distress, no wheezing/rhonchi/rales CV: RRR, no murmur, no pretibial edema Abd: normal BS, soft, non-tender Back: no spinous process tenderness to palpation, +tenderness to right lower lumbar region, +tenderness to palpation right buttock and right lateral thigh. +right leg raise to approx 20 degrees. Sensation to light touch intact bilaterally, +dorsalis pedis pulse intact Ext: no cyanosis, no calf tenderness Neuro: A&O x 3, no focal deficits noted, normal affect Skin: warm, dry Principal Diagnosis Lumbosacral radiculopathy Protrusion of lumbar intervertebral tracts Prediabetes Discharge Exam General: awake, alert, no apparent distress, white male Head: Normocephalic, atraumatic ENT: PERRL, EOMI, no pharyngeal exudate, mucous membranes moist Chest: Clear to auscultation, on room air, no adventitious breath sounds Cardiac: Regular rate and rhythm, no murmur, no JVD, normal peripheral pulses, good capillary refill Abdominal: NABS x 4 quadrants, soft, nondistended, nontender to palpation, no rebound or guarding Extremities: Normal inspection, no peripheral edema or erythema, calfs nontender to palpation Psych: Normal mood and affect Neuro: AAO x 3, strength intact bilaterally and rated 5/5, able to move all extremities, no motor deficits but reports pain with movement of the right leg and sitting up in bed in the r lower back/hip region. speech is clear, no peripheral sensory deficits Discharge Data Allergies Allergy/AdvReac Type Severity Reaction Status Date / Time No Known Allergies Allergy Unverified 11/15/11 23:58 Consultations 11/01/23 16:40 ED Decision to Admit Stat 11/01/23 16:42 Consult Orthopedic Spine Surgery Stat 11/01/23 19:31 Consult Orthopedic Spine Surgery Routine 11/02/23 06:05 Consult Pain Management Routine Ordered Studies 11/01/23 12:43 MR lumbar spine wo con Stat Hospital Course (1) Lumbosacral radiculopathy: (2) Protrusion of lumbar intervertebral disc: Patient is 57 year old male with PMH HTN, GERD, prediabetes presented to ER wtih c/o low back pain, right leg pain x 3 weeks. Patient reports Low back pain and right lateral leg pain x 3 weeks. -Admit med surg for pain control -Scheduled Tylenol, tramadol per pain management. Gabapentin scaled back to 100 mg tid w/ improvement in his dizziness symptoms. Pt advised to coordinate w/ his PCP for uptitrating gabapentin depending on how he is doing in next few days. He voiced understanding. -c/w prednisone 20mg daily - taper the dose on dc. -Pain control better but not completely gone. pt advised to avoid bending/lifting heavy. -Ortho spine consult- appreciate recs - no surgical intervention -Pain management evaled. appreciate recs. (3) HTN (hypertension): -Stable in ER -Continue amlodipine, losartan (4) GERD (gastroesophageal reflux disease): -Continue PPI (5) Prediabetes: - A1c: 6.0 - Monitor glucose on steroids. Monitoring at pcp office and a1c in 3 months. DVT Prophylaxis: SCDs Full Code Follows with Dr Bernadette Diego for routine care Plan Patient is being discharged home with following instruction at the point of discharge: Follow-up with your primary care physician within a week time and likely you will need labs CBC/CMP/magnesium/phosphorus. You were evaluated for lumbosacral radiculopathy, pain management and orthospine also evaluated you while in the hospital. You will be discharged on pain management. You will need gabapentin dose uptitrated in the next few days, coordinate with your PCP office or pain management office. You will be discharged on tapering dose of steroid. Follow-up with orthospine as an outpatient. Follow-up with pain management clinic as an outpatient. Your A1c is 6.0 which means you have prediabetes, recommend lifestyle modification/weight loss/incorporate exercise regimen. You will need repeat A1c level in 3 months time, coordinate with your PCP office to set up the test. Take your medications as prescribed. Please make sure that you are able to get your medications today by calling your pharmacy before you leave the hospital so that your treatment continuity is not broken. Home Health Attestation I certify that this patient is under my care and that I, or a physicians library circulation assistant working with me, had a face to-face encounter that meets the home health [id number] encounter requirements with this patient. The encounter with the patient was in whole, or in part, for the following medical condition, which is the primary reason for home health care (list medical condition): I certify that, based on my findings, the following services are medically necessary home health services: My clinical findings support the need for the above services because: Further, I certify that my clinical findings support that this patient is homebound (i.e. absences from home require considerable and taxing effort and are for medical reasons or taoist services or infrequently or of short duration when for other reasons) because: Certification for Home Health Services: Based on the above findings, I certify that this patient is confined to the home and needs intermittent alf care, physical therapy and/or speech therapy or continues to need occupational therapy. The patient is under my care, and I have initiated the establishment of the plan of care. This patient will be followed by a physician who will periodically review the plan of care. Total Time Total Time Spent Total Time Spent (In Minutes): 45 Discharge Plan Discharge Items Patient Disposition: Home - Self-Care Reason For Visit: BACK PAIN Discharge Diagnosis: Lumbosacral radiculopathy Protrusion of lumbar intervertebral tracts Prediabetes Activity: As commented below Activity Comment: avoid bending, lifting heavy >5 lbs. Non-emergency contact: Primary Care Provider Call non-emergency contact if: you have any medication questions, your symptoms worsen, your pain is not controlled, your pain is worsening and your temperature is above 101.5 Follow-up/Referrals: Bernadette Diego DO [Primary Care Provider] - (Date & Time 11/07/2023 3:00 PM Provider Bernadette Diego DO Department [facility] ) Diet: Regular Addtl Attending Provider Instructions: Follow-up with your primary care physician within a week time and likely you will need labs CBC/CMP/magnesium/phosphorus. You were evaluated for lumbosacral radiculopathy, pain management and orthospine also evaluated you while in the hospital. You will be discharged on pain management. You will need gabapentin dose uptitrated in the next few days, coordinate with your PCP office or pain management office. You will be discharged on tapering dose of steroid. Follow-up with orthospine as an outpatient. Follow-up with pain management clinic as an outpatient. Your A1c is 6.0 which means you have prediabetes, recommend lifestyle m odification/weight loss/incorporate exercise regimen. You will need repeat A1c level in 3 months time, coordinate with your PCP office to set up the test. Take your medications as prescribed. Please make sure that you are able to get your medications today by calling your pharmacy before you leave the hospital so that your treatment continuity is not broken. Pending Studies at Discharge: No Stand-Alone Forms: My [employer], Smoking Cessation Medications and DC Order Prescriptions: New acetaminophen [Tylenol Extra Strength] 500 mg Tablet 1,000 mg PO Q8H 7 Days Qty: 42 0RF gabapentin 100 mg Capsule 100 mg PO TID Qty: 90 0RF tramadol 50 mg Tablet 50 mg PO Q6H PRN (Reason: severe pain (scale score 7-10)) Qty: 20 0RF bisacodyl [Gentle Laxative (bisacodyl)] 5 mg Tablet,Delayed Release (Dr/Ec) 5 mg PO BID 7 Days Qty: 14 0RF polyethylene glycol 3350 [Miralax] 17 gram Powder In Packet 17 g PO DAILY 7 Days Qty: 7 0RF prednisone 5 mg tablet 5 mg PO UD Qty: 34 0RF Rx Instructions: 4 tabs daily x 5 days, 3 tabs daily x 3 days, 2 tabs daily x 2 days, 1 tab daily x 1 day. then stop. famotidine 20 mg tablet 20 mg PO DAILY 11 Days Qty: 11 0RF Rx Instructions: once daily for the duration of steroid use. Continued amlodipine 10 mg tablet 10 mg PO DAILY omeprazole 20 mg capsule,delayed release(DR/EC) 20 mg PO DAILYBB losartan 100 mg tablet 100 mg PO QAM Discharge Orders: Discharge Order (Routine); Ordered 11/04/23 Ordered By: Slade Cheung/Other Patient Handouts: Prediabetes, 5 Steps for Eating Healthier Admission Data Admit Date/Time: 11/01/23 16:55 Attending Provider: Slade Mora Admit Provider: Giovanny Lord Primary Care Provider: Bernadette Diego Other Providers: Jethro Campos; Jessica Sims; Giovanny Lord
== END 2023-11-04 13:43 | disposition home or self-care (01) | DRG 552 ==
LOC: ED 12:12 → SUATTDRO 16:55 → EDINP 16:55 → 3W 19:31